=== PATIENT | female | born 1985 ===

== ENCOUNTER 2019-01-19 13:08 | Emergency (ER) | payer OTHER ==
[2019-01-19 13:44] VITALS: BP 136/88
--- NOTE | 2019-01-19 14:09 | UC ---
Laceration HPI - HPI Summary HPI Summary: needle stick left middle finger x 1 day ago injury at work , pt. 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 . didn't realized until the pt. was gone, could not contact the source. pt. had post exposure blood work done yesterday , would like to start PEP HIV meds - History Of Current Complaint Chief Complaint: UCBodyFluidExposure Stated Complaint: WC-NEEDLE STICK Time Seen by Provider: 01/19/19 13:11 Hx Obtained From: Patient Hx Last Menstrual Period: 01/17/19 Laceration Location: Hand - left Mechanism Of Injury: Sharp Trauma Onset/Duration: Sudden Onset, Lasting Days - 1, Still Present Severity: Mild Pain Intensity: 0 Pain Scale Used: 0-10 Numeric Aggravating Factors: Nothing - Allergies/Home Medications Allergies/Adverse Reactions: Allergies Allergy/AdvReac Type Severity Reaction Status Date / Time No Known Allergies Allergy Verified 01/19/19 13:42 Home Medications: Home Medications Ibuprofen TAB* [Advil TAB*] 200 mg PO Q6H PRN 01/19/19 [History Confirmed ] PMH/Surg Hx/FS Hx/Imm Hx Previously Healthy: Yes - Surgical History Surgical History: None - Family History Known Family History: Negative: Diabetes - Social History Alcohol Use: None Substance Use Type: None Smoking Status (MU): Never Smoked Tobacco - Immunization History Most Recent Tetanus Shot: 2018 Review of Systems All Other Systems Reviewed And Are Negative: Yes Is Patient Immunocompromised?: No Physical Exam Triage Information Reviewed: Yes Appearance: Well-Appearing, No Pain Distress, Well-Nourished Vital Signs: Initial Vital Signs Temp 98.1 F 01/19/19 13:36 Pulse 72 01/19/19 13:36 Resp 16 01/19/19 13:36 BP 136/88 01/19/19 13:36 Pulse Ox 100 01/19/19 13:36 Vital Signs Reviewed: Yes Eye Exam: Normal ENT Exam: Normal ENT: Positive: Normal ENT inspection Neck exam: Normal Neck: Positive: Supple Respiratory: Positive: Chest non-tender, Lungs clear, Normal breath sounds Cardiovascular Exam: Normal Cardiovascular: Positive: RRR, No Murmur Abdominal Exam: Normal Skin: Positive: Other - minor abrasion left hand Laceration Course/Dx - Diagnosis Provider Diagnosis: Abrasion of left hand, Needle stick injury Discharge ED - Sign-Out/Discharge Documenting (check all that apply): Patient Departure All imaging exams completed and their final reports reviewed: No Studies - Discharge Plan Condition: Stable Disposition: HOME Prescriptions: Raltegravir* [Isentress*] 400 mg PO BID #28 tab Tenofovir/Emtricitab 200/300 * [Truvada 200/300 mg*] 1 tab PO DAILY #14 tab Patient Education Materials: Needle Stick Injuries (ED) Referrals: Adis EDWARD,Feroz Larkin [Medical Doctor] - As Soon As Possible No Primary Care Phys,NOPCP [Primary Care Provider] - - Billing Disposition and Condition Condition: STABLE Disposition: Home
== END 2019-01-19 14:01 | disposition home or self-care (01) ==
LOC: UCCORT 13:08
DX: S60.512A Abrasion of left hand, initial encounter (principal); S69.92XA Unspecified injury of left wrist, hand and finger(s), initial encounter; W46.0XXA Contact with hypodermic needle, initial encounter; Y92.9 Unspecified place or not applicable; Y99.0 Civilian activity done for income or pay
CPT/HCPCS: 99212; G0463

== ENCOUNTER 2019-04-24 10:31 | Emergency (ER) | payer BC, OTHER ==
[2019-04-24 12:05] VITALS: BP 125/89
--- NOTE | 2019-04-24 12:22 | UC ---
Throat Pain/Nasal Rocky HPI - HPI Summary HPI Summary: 33-year-old woman comes in with a chief complaint of bodyaches chills upper respiratory tract infection symptoms with a sore throat. All started 3 days ago. Rhinorrhea is minimal. Throats worse with swallowing. Feel slightly better today than yesterday. Does feel slight chest congestion. Has had some chills no fevers measured. - History of Current Complaint Chief Complaint: UCGeneralIllness Stated Complaint: SORE THROAT, CONGESTION, COUGH Time Seen by Provider: 04/24/19 11:53 Hx Last Menstrual Period: 04/16/19 Pain Intensity: 2 - Allergies/Home Medications Allergies/Adverse Reactions: Allergies Allergy/AdvReac Type Severity Reaction Status Date / Time No Known Allergies Allergy Verified 04/24/19 12:06 Home Medications: Home Medications Amoxicillin PO (*) [Amoxicillin 875 MG (*)] 875 mg PO BID #20 tab 04/24/19 [Rx] Guaifen/Dextromethorphan/PE [Tussin Cf Cough-Cold Liquid] 1 dose PO SEE INSTRUCTIONS PRN 04/24/19 [History Confirmed 04/24/19] PMH/Surg Hx/FS Hx/Imm Hx Previously Healthy: Yes - Surgical History Surgical History: None - Family History Known Family History: Negative: Diabetes - Social History Alcohol Use: None Substance Use Type: None Smoking Status (MU): Never Smoked Tobacco - Immunization History Most Recent Tetanus Shot: 2018 Review of Systems All Other Systems Reviewed And Are Negative: Yes Constitutional: Positive: Other - SEE HPI Skin: Positive: Negative Eyes: Positive: Negative ENT: Positive: Sore Throat, Nasal Discharge Respiratory: Positive: Cough Cardiovascular: Positive: Negative Gastrointestinal: Positive: Negative Motor: Positive: Negative Neurovascular: Positive: Negative Musculoskeletal: Positive: Myalgia Neurological/Mental Status: Positive: Negative Psychological: Positive: Negative Is Patient Immunocompromised?: No Physical Exam Triage Information Reviewed: Yes Appearance: Well-Appearing, No Pain Distress, Well-Nourished Vital Signs: Initial Vital Signs Temp 98.0 F 04/24/19 12:00 Pulse 73 04/24/19 12:00 Resp 18 04/24/19 12:00 BP 125/89 04/24/19 12:00 Pulse Ox 99 04/24/19 12:00 Vital Signs Reviewed: Yes Eye Exam: Normal Eyes: Positive: Conjunctiva Clear ENT: Positive: Pharyngeal erythema, Nasal congestion, Nasal drainage, TMs normal Neck: Positive: Supple Respiratory: Positive: Lungs clear, Normal breath sounds, No respiratory distress Cardiovascular: Positive: RRR Musculoskeletal: Positive: Strength Intact, ROM Intact Neurological: Positive: Alert, Muscle Tone Normal Psychological: Positive: Age Appropriate Behavior Skin Exam: Normal Throat Pain/Nasal Course/Dx - Course Course Of Treatment: DISCUSSED VIRAL VERSES BACTERIAL INFECTIONS AND THE ROLE OF ANTIBIOTICS. THE PATIENT PREFERS TO HAVE AN ANTIBIOTIC RX TO START IF NOT IMPROVING AT THIS TIME. - Differential Dx/Diagnosis Provider Diagnosis: Upper respiratory infection Discharge ED - Sign-Out/Discharge Documenting (check all that apply): Patient Departure All imaging exams completed and their final reports reviewed: No Studies - Discharge Plan Condition: Stable Disposition: HOME Prescriptions: Amoxicillin PO (*) [Amoxicillin 875 MG (*)] 875 mg PO BID #20 tab Patient Education Materials: Upper Respiratory Infection (ED) Referrals: [facility] [Outside] Additional Instructions: FOLLOW UP WITH YOUR DOCTOR IF NOT COMPLETELY IMPROVED. GET REEVALUATED SOONER IF NOT IMPROVED OR WORSE OR ANY QUESTIONS OR CONCERNS. - Billing Disposition and Condition Condition: STABLE Disposition: Home
[2019-04-24 12:27] LABS: Influenza A Molecular Negative (Negative); Influenza B Molecular Negative (Negative)
== END 2019-04-24 12:48 | disposition home or self-care (01) ==
LOC: UCCORT 10:31
DX: J06.9 Acute upper respiratory infection, unspecified (principal); M79.10 Myalgia, unspecified site
CPT/HCPCS: 87651; 99212; G0463